=== PATIENT | female | born 1980 | race Caucasian/White ===

== ENCOUNTER 2019-11-07 14:32 | Emergency (ER) | payer MEDICARE ==
--- NOTE | 2019-11-07 15:27 | ERPHSYRPT ---
- History of Present Illness Source: patient, EMS Exam Limitations: other (Poor historian) Patient Subjective Stated Complaint: Pt had an approx 3 min seizure and was postictal for approx 10 min afterwards, first seizure in approx 7 years, pt now complains of middle back pain and medial chest pain, pt was in bed when she had her seizure Triage Nursing Assessment: Pt brought to the ER by EMS, pt c/o of chest and back pain, tachycardic, rates pain 10/10, pulses normal, no difficulties with strength, states "I think I broke my back", pt doesn't remember the seizure Physician History: 39 yo wf from hotel in [place] w seizure in bed. EMS saw no seizure activity but reported by . Pt arrived alert complaining of mid-chest and posterior thoracic pain. She has dyspnea wo N/V/D/focal weakness/fever. Pt states that she has a shunt due brain tumors w revision in 2011. She also has a seizure DO but has not been taking her Topamax, as she has not had a seizure in many years. Pt denies incontinence/alcohol/drugs/falling. Timing/Duration: improved (Prior to arrival) Severity: mild Character of Deficits: none Deficits: no difficulties Baseline/Normal Cognition: alert oriented x 3 Current Cognition: alert oriented x 3 Baseline Gait: walks w/o assistance Associated Symptoms: loss of consciousness, chest pain, headache, No confusion, No fatigue, No fever, No chills, No nausea, No vomiting, No weakness, No insomnia, No muscle spasms, No numbness/tingling in legs/feet, No paresthesia, No ringing in ears, No seizures Allergies/Adverse Reactions: Penicillins Allergy (Intermediate, Verified 07/15/12 00:07) ketorolac tromethamine [From Toradol] Adverse Reaction (Mild, Verified 07/15/12 00:07) metoclopramide HCl [From Reglan] Adverse Reaction (Mild, Verified 07/15/12 00:07) ondansetron HCl [From Zofran] Adverse Reaction (Mild, Verified 07/15/12 00:07) prochlorperazine edisylate [From Compazine] Adverse Reaction (Mild, Verified 07/15/12 00:07) prochlorperazine maleate [From Compazine] Adverse Reaction (Mild, Verified 07/15/12 00:07) Home Medications: Topiramate 100 mg [Topamax 100 MG] 100 mg PO TID 11/11/11 [History] Albuterol Sulfate [Albuterol Sulfate Hfa] 18 gm IH BID 07/15/12 [History] Alprazolam 1 mg [Xanax 1 mg] 1 mg PO TID 07/15/12 [History] Hx Tetanus, Diphtheria Vaccination/Date Given: No (> 10 years) Hx Influenza Vaccination/Date Given: Yes (2011) Hx Pneumococcal Vaccination/Date Given: No Travel Risk - International Travel Have you traveled outside of the country in past 3 weeks: No - Coronavirus Screening Are you exhibiting any of the following symptoms?: No Close contact with a COVID-19 positive Pt in past 14-21 Days: No - Review of Systems Constitutional: No Symptoms Eyes: No Symptoms Ears, Nose, & Throat: No Symptoms Respiratory: No Symptoms Cardiac: Chest Pain Abdominal/Gastrointestinal: No Symptoms Genitourinary Symptoms: No Symptoms Musculoskeletal: No Symptoms Skin: No Symptoms Neurological: No Symptoms Psychological: No Symptoms Endocrine: No Symptoms Hematologic/Lymphatic: No Symptoms Immunological/Allergic: No Symptoms - Past Medical History Pertinent Past Medical History: Yes Neurological History: Seizures, Stroke, Other ENT History: No Pertinent History Cardiac History: No Pertinent History Respiratory History: Pulmonary Embolism Endocrine Medical History: Hypoglycemia Musculoskeletal History: No Pertinent History GI Medical History: No Pertinent History History: No Pertinent History Psycho-Social History: Depression Female Reproductive Disorders: No Pertinent History Other Medical History: brain tumor and increased icp, brain bleed - Past Surgical History Past Surgical History: Yes Neuro Surgical History: Brain Shunt Cardiac: No Pertinent History Respiratory: No Pertinent History Gastrointestinal: Cholecystectomy Genitourinary: No Pertinent History Female Surgical History: Hysterectomy Other Surgical History: daniela in leg, plate in jaw, screw removed from knee, plate removed in jaw, fractured jaw, fractured sternum, busted teeth, fractured ribs, bruised liver - Social History Smoking Status: Current every day smoker How long have you smoked: 22 years Exposure to second hand smoke: Yes Drug Use: none Patient Lives Alone: No Significant Family History: no pertinent family hx - Female History Hx Now: No - Nursing Vital Signs Nursing Vital Signs: Initial Vital Signs Temperature 97.9 F 11/07/19 14:33 Pulse Rate 109 H 11/07/19 14:33 Respiratory Rate 24 11/07/19 14:33 Blood Pressure 103/79 11/07/19 14:33 O2 Sat by Pulse Oximetry 95 11/07/19 14:33 Pain Scale Pain Intensity 0 - [place] Coma Scale Best Eye Response (Lesa): (4) open spontaneously Best Verbal Response (Lesa): (5) oriented Best Motor Response (Lesa): (6) obeys commands [place] Total: 15 - Physical Exam General Appearance: no apparent distress (Complaining of pain) Eye Exam: bilateral eye: normal inspection, PERRL, EOMI Ears, Nose, Throat Exam: normal ENT inspection, TMs normal, pharynx normal, moist mucous membranes Neck Exam: normal inspection, non-tender, supple, full range of motion, No meningismus, No Brudzinski, No Kernig's Respiratory: normal breath sounds, chest tenderness, lungs clear, respiratory distress, airway intact Cardiovascular: tachycardia (wo M) Gastrointestinal: soft, normal bowel sounds, No tenderness Pelvic Exam: not done Rectal Exam: deferred Back Exam: normal inspection, normal range of motion, No CVA tenderness, No vertebral tenderness Extremity Exam: normal inspection, normal range of motion, pelvis stable Mental Status: alert, oriented x 3, 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 Exam: normal hearing, normal speech, PERRL, No abnormal gag reflex, No abnormal pupil position, No abnormal speech, No facial asymmetry, No facial droop, No facial paresthesias, No facial weakness Coordination/Gait: normal finger to nose Motor/Sensory: no motor deficit, no sensory deficit, no pronator drift, negative Babinski's sign DTR: bicep (R): 2+, bicep (L): 2+ Skin Exam: normal color, warm, dry, No rash SpO2 Interpretation: normal SpO2: 95 O2 Delivery: Room Air - Course Nursing assessment & vital signs reviewed: Yes EKG Interpreted by Me: RATE (sinus tach/rate 105/Normal QT/Borderline prolonged QTc) - CT Exams Head CT Interpretation: Discussed w/radiologist (New 0.9x1cm midline brainstem mass w necrosis/0.8x1.4cm L frontal lobe subcortical hyperdense mass/Old lesions x3) Chest CT Interpretation: Discussed w/radiologist (CTA chest-no PE/T5-T7 remote endplate fx's) Ordered Tests: Active Orders 24 hr Category Date Time Status EKG-ER Only STAT Care 11/07/19 14:46 Completed IV Insertion STAT Care 11/07/19 18:30 Completed CTA CHEST W AND/OR WO [CT] Stat Exams 11/07/19 14:56 Completed HEAD WITHOUT CONTRAST [CT] Stat Exams 11/07/19 14:48 Completed CBC W DIFF Stat Lab 11/07/19 15:31 Completed CMP Routine Lab 11/07/19 15:00 Completed ETHYL ALCOHOL Routine Lab 11/07/19 15:00 Completed Manual Differential NC Stat Lab 11/07/19 15:31 Completed PROTIME WITH INR Stat Lab 11/07/19 17:00 Completed PTT Stat Lab 11/07/19 17:00 Completed TROPONIN Q3H Lab 11/07/19 15:00 Completed TROPONIN Q3H Lab 11/07/19 17:30 Completed Urine Triage Profile Stat Lab 11/07/19 16:45 Completed Medication Summary Discontinued Medications Generic Name Dose Route Start Last Admin Trade Name Freq PRN Reason Stop Dose Admin Fentanyl Citrate 50 mcg 11/07/19 17:14 11/07/19 17:20 Sublimaze 100 Mcg/2 Ml IV 11/07/19 17:15 50 mcg STAT ONE Administration Fentanyl Citrate Confirm 11/07/19 17:17 Sublimaze 100 Mcg/2 Ml Administered 11/07/19 17:18 Dose 100 mcg .ROUTE .STK-MED ONE Fentanyl Citrate 50 mcg 11/07/19 17:53 11/07/19 17:58 Sublimaze 100 Mcg/2 Ml IV 11/07/19 17:54 50 mcg STAT ONE Administration Fentanyl Citrate Confirm 11/07/19 17:56 Sublimaze 100 Mcg/2 Ml Administered 11/07/19 17:57 Dose 100 mcg .ROUTE .STK-MED ONE Fentanyl Citrate 50 mcg 11/07/19 19:13 11/07/19 19:16 Sublimaze 100 Mcg/2 Ml IV 11/07/19 19:14 50 mcg STAT ONE Administration Fentanyl Citrate Confirm 11/07/19 19:15 Sublimaze 100 Mcg/2 Ml Administered 11/07/19 19:16 Dose 100 mcg .ROUTE .STK-MED ONE Levetiracetam 1,000 mg/ 110 mls @ 220 mls/hr 11/07/19 18:12 11/07/19 18:25 Dextrose IV 11/07/19 18:41 220 mls/hr STAT ONE Administration Dextrose Confirm 11/07/19 18:23 D5w 100ml Mini Bag 100 Ml Administered 11/07/19 18:24 Dose 100 mls @ ud IV .STK-MED ONE Dextrose Confirm 11/07/19 19:07 D5w 100ml Mini Bag 100 Ml Administered 11/07/19 19:08 Dose 100 mls @ ud IV .STK-MED ONE Levetiracetam Confirm 11/07/19 18:23 Keppra 500 Mg/5 Ml Administered 11/07/19 18:24 Dose 500 mg .ROUTE .STK-MED ONE Levetiracetam Confirm 11/07/19 19:07 Keppra 500 Mg/5 Ml Administered 11/07/19 19:08 Dose 500 mg .ROUTE .STK-MED ONE Lorazepam 1 mg 11/07/19 21:00 11/07/19 21:03 Ativan 2 Mg/1 Ml Vial IV 11/07/19 21:01 1 mg STAT ONE Administration Lorazepam Confirm 11/07/19 21:03 Ativan 2 Mg/1 Ml Vial Administered 11/07/19 21:04 Dose 2 mg .ROUTE .STK-MED ONE Ondansetron HCl 4 mg 11/07/19 17:15 11/07/19 17:19 Zofran 4 Mg/2 Ml Vial IV 11/07/19 17:16 4 mg STAT ONE Administration Ondansetron HCl Confirm 11/07/19 17:17 Zofran 4 Mg/2 Ml Vial Administered 11/07/19 17:18 Dose 4 mg .ROUTE .STK-MED ONE Lab/Rad Data: Laboratory Result Diagrams 11/07/19 15:31 11/07/19 15:00 Laboratory Results 11/07/19 11/07/19 11/07/19 Range/Units 17:30 17:00 16:45 WBC (4.0-10.5) K/mm3 RBC (4.1-5.4) M/mm3 Hgb (12.0-16.0) gm/dl Hct (35-47) % MCV (78-100) fl MCH (26-32) pg MCHC (32-36) g/dl RDW (11.5-14.0) % Plt Count (150-450) K/mm3 MPV (7.5-11.0) fl Absolute Granulocytes (1.4-6.9) Segmented Neutrophils (36.0-66.0) % Band Neutrophils (0.0-2.0) % Lymphocytes (Manual) (24-44) % Monocytes (Manual) (0.0-12.0) % Eosinophils (Manual) (0.00-3.0) % Platelet Estimate (NORMAL) RBC Morphology PT 10.3 (9.95-12.35) SECONDS INR 0.91 (0.8-3.0) APTT 27.4 (25.3-37.0) SECONDS Sodium (137-145) mmol/L Potassium (3.5-5.1) mmol/L Chloride (98-107) mmol/L Carbon Dioxide (22-30) mmol/L Anion Gap (5-15) MEQ/L BUN (7-17) mg/dL Creatinine (0.52-1.04) mg/dL Estimated GFR ML/MIN Glucose (74-106) mg/dL Calcium (8.4-10.2) mg/dL Total Bilirubin (0.2-1.3) mg/dL AST (14-36) U/L ALT (0-35) U/L Alkaline Phosphatase (38-126) U/L Troponin I < 0.012 (0.000-0.034) ng/mL Serum Total Protein (6.3-8.2) g/dL Albumin (3.5-5.0) g/dL Urine Opiates Level NEGATIVE (NEGATIVE) Ur Methadone NEGATIVE (NEGATIVE) Urine Barbiturates NEGATIVE (NEGATIVE) Ur Phencyclidine (PCP) NEGATIVE (NEGATIVE) Urine Amphetamine NEGATIVE (NEGATIVE) U Benzodiazepine Level NEGATIVE (NEGATIVE) Urine Cocaine NEGATIVE (NEGATIVE) Urine Marijuana (THC) NEGATIVE (NEGATIVE) Ethyl Alcohol (0-10) mg/dL 11/07/19 11/07/19 Range/Units 15:31 15:00 WBC 15.0 H (4.0-10.5) K/mm3 RBC 4.58 (4.1-5.4) M/mm3 Hgb 13.8 (12.0-16.0) gm/dl Hct 43.1 (35-47) % MCV 94.1 (78-100) fl MCH 30.1 (26-32) pg MCHC 32.0 (32-36) g/dl RDW 13.5 (11.5-14.0) % Plt Count 291 (150-450) K/mm3 MPV 10.2 (7.5-11.0) fl Absolute Granulocytes 10.85 H (1.4-6.9) Segmented Neutrophils 71 H (36.0-66.0) % Band Neutrophils 1 (0.0-2.0) % Lymphocytes (Manual) 22 L (24-44) % Monocytes (Manual) 4 (0.0-12.0) % Eosinophils (Manual) 2 (0.00-3.0) % Platelet Estimate NORMAL (NORMAL) RBC Morphology NORMAL PT (9.95-12.35) SECONDS INR (0.8-3.0) APTT (25.3-37.0) SECONDS Sodium 136 L (137-145) mmol/L Potassium 4.4 (3.5-5.1) mmol/L Chloride 107 (98-107) mmol/L Carbon Dioxide 16 L* (22-30) mmol/L Anion Gap 17.4 H (5-15) MEQ/L BUN 17 (7-17) mg/dL Creatinine 0.58 (0.52-1.04) mg/dL Estimated GFR > 60.0 ML/MIN Glucose 122 H (74-106) mg/dL Calcium 9.9 (8.4-10.2) mg/dL Total Bilirubin 0.20 (0.2-1.3) mg/dL AST 28 (14-36) U/L ALT 21 (0-35) U/L Alkaline Phosphatase 64 (38-126) U/L Troponin I < 0.012 (0.000-0.034) ng/mL Serum Total Protein 7.4 (6.3-8.2) g/dL Albumin 4.3 (3.5-5.0) g/dL Urine Opiates Level (NEGATIVE) Ur Methadone (NEGATIVE) Urine Barbiturates (NEGATIVE) Ur Phencyclidine (PCP) (NEGATIVE) Urine Amphetamine (NEGATIVE) U Benzodiazepine Level (NEGATIVE) Urine Cocaine (NEGATIVE) Urine Marijuana (THC) (NEGATIVE) Ethyl Alcohol < 10 (0-10) mg/dL - Progress Progress: improved Progress Note: 11/07/19 18:14 [facility] refused transfer and wanted pt transferred to [facility] Pt accepted by Dr. Medina at [facility] 11/07/19 20:06 11/07/19 22:06 During entire stay, pt complained of T-spine pain. CT demonstrated T5/T7 endplate fx's which are old per Rad. Pt given 50umg IV Fentanyl x3 w mild relief. 1mg IV Ativan seemed to improve symptoms. Pt given 1gm IV Keppra at Dr. Medina's request. 11/07/19 23:16 Care transferred to ambulance in stable condition Counseled pt/family regarding: lab results, diagnosis, rad results - Departure Departure Disposition: Transfer Clinical Impression: Brain tumor, Compression fracture Condition: Stable Critical Care Time: No Referrals: CRUZ DIAZ [NON-STAFF PHY W/O PRIVILEGES] -
[2019-11-07 15:37] LABS: Hematocrit 43.1 % (35-47); Hemoglobin 13.8 gm/dl (12.0-16.0); Mean Cell Volume 94.1 fl (78-100); Mean Corpuscular Hemoglobin 30.1 pg (26-32); Mean Platelet Volume 10.2 fl (7.5-11.0); Platelet Count 291 K/mm3 (150-450); Red Blood Count 4.58 M/mm3 (4.1-5.4); Red Cell Distribution Width 13.5 % (11.5-14.0)
[2019-11-07 16:01] LABS: ALBUMIN 4.3 g/dL (3.5-5.0); ALKALINE PHOSPHATASE 64 U/L (38-126); BLOOD UREA NITROGEN 17 mg/dL (7-17); CHLORIDE 107 mmol/L (98-107); Calcium 9.9 mg/dL (8.4-10.2); Creatinine 1 0.58 mg/dL (0.52-1.04); EST GLOMERULAR FILTRATION RATE > 60.0 ML/MIN; Glucose 122 mg/dL (74-106); Potassium 4.4 mmol/L (3.5-5.1); SGOT/AST 28 U/L (14-36); SGPT/ALT 21 U/L (0-35); SODIUM 136 mmol/L (137-145); Total Protein 7.4 g/dL (6.3-8.2)
[2019-11-07 16:06] LABS: BAND 1 % (0.0-2.0); Eosinophil 2 % (0.00-3.0); Lymphocytes 22 % (24-44); Monocyte 4 % (0.0-12.0); Neutrophils 71 % (36.0-66.0); Platelet Estimate NORMAL (NORMAL); Total Cells Counted 100
[2019-11-07 16:07] LABS: Absolute Neutrophil Ct (ANC) 10.85 (1.4-6.9)
[2019-11-07 16:36] LABS: TROPONIN < 0.012 ng/mL (0.000-0.034)
--- NOTE | 2019-11-07 16:43 | XRAY ---
Indication: Headache. Seizure. History of brain tumor. Multiple contiguous axial images obtained through the head without contrast. Comparison: July 15, 2012. Stable right ventricular shunt catheter with tip seen midline. No hydrocephalus. Stable 1.8 x 1.4 cm left brain stem mass with central area of necrosis, 1.0 x 1.3 cm left posterior parietal subcortical hyperdense mass, and 4 x 9 mm left periventricular hyperdense lesion posteriorly. There is a new 0.9 x 1.0 cm midline brain stem mass with necrosis and a 0.8 x 1.4 cm left frontal lobe subcortical hyperdense mass. No acute intracranial hemorrhage, abnormal extra-axial fluid collection, or mass effect. Maxwell-white matter differentiation preserved. Bony calvarium intact. Visualized paranasal sinuses and mastoid air cells are clear. Impression: 1. Stable left midbrain and left posterior parietal lobe masses presumed known brain tumors. New small left frontal lobe and brain stem masses as detailed. More recent comparison studies are recommended if available. If not available, MRI brain with contrast may yield further information. 2. Stable right ventricular shunt catheter without hydrocephalus. 3. No acute intracranial hemorrhage or mass effect.
[2019-11-07 16:53] LABS: ETHYL ALCOHOL < 10 mg/dL (0-10)
[2019-11-07 16:54] LABS: Carbon Dioxide 16 mmol/L (22-30)
[2019-11-07 16:55] LABS: ANION GAP 17.4 MEQ/L (5-15)
--- NOTE | 2019-11-07 16:55 | XRAY ---
Indication: Chest pain and tachycardia. Conventional CTA chest was performed using 100 cc Isovue-370 contrast. Two-dimensional sagittal and coronal reformatted images obtained. Additional 3-dimensional reformatted images obtained using a separate workstation. Comparison: None Aorta is normal in course and caliber without aneurysm/dissection. There is good opacification of the pulmonary arteries to include the lobar and segmental branches. No pulmonary embolus. Heart is not enlarged. No pathologic mediastinal/hilar lymphadenopathy. Lungs demonstrates mild bilateral dependent atelectasis. No suspicious pulmonary mass, infiltrate, or effusion. Bony thorax demonstrates a 5 mm T5 and T6 bone islands. Superior endplate of T5 and T7 demonstrates mild concave deformity with sclerosis favoring remote fractures, both with less than 25% height loss. Limited upper abdomen demonstrates mild fatty liver, cholecystectomy clips, and right-sided ventricular shunt catheter. Impression: 1. Negative pulmonary embolus. Negative CTA chest. 2. Incidental remote appearing T5/T7 endplate fractures, tiny T5/T6 bone islands, and fatty liver.
[2019-11-07] MEDS ORDERED: SUBLIMAZE 100 MCG/2 ML IV ONE ×3 (17:14→19:13)
[2019-11-07] MEDS ORDERED: Zofran 4 MG/2 ML VIAL IV ONE (17:15)
[2019-11-07] MEDS ORDERED: Zofran 4 MG/2 ML VIAL ONE (17:17)
[2019-11-07] MEDS ORDERED: SUBLIMAZE 100 MCG/2 ML ONE ×3 (17:17→19:15)
[2019-11-07 17:19] LABS: INR 0.91 (0.8-3.0); PROTIME 10.3 SECONDS (9.95-12.35)
[2019-11-07 17:22] LABS: PTT 27.4 SECONDS (25.3-37.0)
[2019-11-07 17:28] LABS: Amphetamine,Urine NEGATIVE (NEGATIVE); Barbiturate,Urine NEGATIVE (NEGATIVE); Benzodiazepine,Urine NEGATIVE (NEGATIVE); Cocaine,Urine NEGATIVE (NEGATIVE); Methadone,Urine NEGATIVE (NEGATIVE); Opiate,Urine NEGATIVE (NEGATIVE); PCP,Urine NEGATIVE (NEGATIVE); THC,Urine NEGATIVE (NEGATIVE)
[2019-11-07] MEDS ORDERED: Keppra 500 MG/5 ML*** 1,000 MG in D5w 100ML Mini Bag 100 ML 100 ML IV ONE (18:12)
[2019-11-07] MEDS ORDERED: Keppra 500 MG/5 ML ONE ×2 (18:23→19:07)
[2019-11-07] MEDS ORDERED: D5w 100ML Mini Bag 100 ML 0 ML IV ONE (18:23)
[2019-11-07] MEDS ORDERED: D5w 100ML Mini Bag 100 ML 100 ML IV ONE (19:07)
[2019-11-07] MEDS ORDERED: Ativan 2 MG/1 ML VIAL IV ONE (21:00)
[2019-11-07] MEDS ORDERED: Ativan 2 MG/1 ML VIAL ONE (21:03)
[2019-11-07 23:08] VITALS: BP 99/69; PULSE 108
[2019-11-07 23:17] VITALS: O2SAT 95
== END 2019-11-07 23:08 | disposition short-term general hospital (02) ==
LOC: ED 14:32
DX: D49.6 Neoplasm of unspecified behavior of brain (principal); M48.54XA Collapsed vertebra, not elsewhere classified, thoracic region, initial encounter for fracture; G40.909 Epilepsy, unspecified, not intractable, without status epilepticus; R55 Syncope and collapse; R07.89 Other chest pain; R51 Headache; Z79.899 Other long term (current) drug therapy
CPT/HCPCS: 36000; 36415; 70450; 71275; 80053; 80307; 84484; 85025; 85610; 85730; 93005; 96365; 96374; 96375; 96376; 99285; G0480; J1953; J2060; J2405; J3010